=== PATIENT | female | born 1955 | race Caucasian/White ===

== ENCOUNTER 2023-07-23 08:31 | Day surgery (SDC) | payer MEDICARE, SELFPAY ==
[2023-07-17 09:58] VITALS: BMI 22.7
--- NOTE | 2023-07-22 08:32 | HO.ANESPROP2 ---
Documented by User: Marlena Tripp NP 07/22/23 08:33 HPI - Anesthesia Eval Consult details Narrative: 68yo F for Colonoscopy MS Suboxon daily PMFSH Past Medical History Medical History Psoriasis Depression GERD (gastroesophageal reflux disease) Osteopenia Migraines Multiple sclerosis HTN (hypertension) Chronic constipation Opiate dependence Surgical History Surgical History Hx of hysterectomy Hx of cholecystectomy History of total hip replacement Hx of total knee replacement H/O colonoscopy Social History Patient Tobacco Use Status: Never used Tobacco Use of substances other than those prescribed or required for medical reasons: No Have you been hit, kicked, punched, or otherwise hurt by someone within the past year? If so, by whom?: No Are you DNR?: No Advance Directives Information Provided: Yes (as above noted) Advance Directives on File: No Recently lost weight without trying: No Eating poorly because of decreased appetite: No Nutrition Risks: No Nutritional Risk Poor oral hygiene: No (upper partial & lower full denture) Meds Allergies Allergy/AdvReac Type Severity Reaction Status Date / Time No Known Allergies Allergy Verified 07/17/23 09:43 Home Medications Medication Instructions Recorded Confirmed Last Taken Type buprenorphine 8 mg-naloxone 2 mg 1 film buccal BID 07/17/23 07/17/23 Unknown History sublingual film (Suboxone) bupropion HCl 100 mg tablet 100 mg PO BID 07/17/23 07/17/23 Unknown History dextroamphetamine-amphetamine 30 15 mg PO TID 07/17/23 07/17/23 Unknown History mg tablet (Adderall) irbesartan 75 mg tablet 75 mg PO BEDTIME 07/17/23 07/17/23 Unknown History Exam Height,Weight and Vital Signs: Height 5 ft 7 in Weight 65.771 kg Assessment and Plan Assessment Anesthesia Assessment: Chart Reviewed Documented by User: Augustina Saini MD 07/23/23 09:20 PMFSH Past Medical History Medical History Psoriasis Depression GERD (gastroesophageal reflux disease) Osteopenia Migraines Multiple sclerosis HTN (hypertension) Chronic constipation Opiate dependence Surgical History Surgical History Hx of hysterectomy Hx of cholecystectomy History of total hip replacement Hx of total knee replacement H/O colonoscopy History of Problems with Anesthesia: No Social History Patient Tobacco Use Status: Never used Tobacco Use of substances other than those prescribed or required for medical reasons: No Have you been hit, kicked, punched, or otherwise hurt by someone within the past year? If so, by whom?: No Are you DNR?: No Advance Directives Information Provided: Yes (as above noted) Advance Directives on File: No Recently lost weight without trying: No Eating poorly because of decreased appetite: No Nutrition Risks: No Nutritional Risk Poor oral hygiene: No (upper partial & lower full denture) Meds Allergies Allergy/AdvReac Type Severity Reaction Status Date / Time No Known Allergies Allergy Verified 07/17/23 09:43 Home Medications Medication Instructions Recorded Confirmed Last Taken Type buprenorphine 8 mg-naloxone 2 mg 1 film buccal BID 07/17/23 07/17/23 Unknown History sublingual film (Suboxone) bupropion HCl 100 mg tablet 100 mg PO BID 07/17/23 07/17/23 Unknown History dextroamphetamine-amphetamine 30 15 mg PO TID 07/17/23 07/17/23 Unknown History mg tablet (Adderall) irbesartan 75 mg tablet 75 mg PO BEDTIME 07/17/23 07/17/23 Unknown History Assessment and Plan Assessment Anesthesia Assessment: Anesthesia Plan Discussed Final Anesthetic Review History of Problems with Anesthesia: No NPO: Yes ASA Class: II Final Preanesthetic Review: Meds/Allgs Chart Reviewed, Consent Obtained/Reviewed and Anes Risks/Benef Reviewed Procedure Risk: Low Anesthetic Plan Anesthetic Plan: MAC: Disposition: Standard PACU
[2023-07-23 08:45] VITALS: BMI 23.1
--- NOTE | 2023-07-23 09:08 | P.HPSUR_ITS ---
Pre-Procedural Eval Section A Date of Service: 07/23/23 Section B Chief Complaint: Encounter for screening for malignant neoplasm of Details of Present Illness: see H&P no changes Relevant Family History (Specify if Yes): No Relevant Social History: None Medical History: No relevant PMH History of Previous Operations: No relevant previous surgery Allergies: Allergies Allergy/AdvReac Type Severity Reaction Status Date / Time No Known Allergies Allergy Verified 07/17/23 09:43 Review of Systems Sugical H&P ROS: Negative: Constitution, Cardiovascular, Respiratory, Neurological, Psychiatric, Hem-Onc, Allergic/Immunologic, Gastrointestinal, Genitourinary, Musculoskeletal, Integumentary, Endocrine and Eyes/Ears/Nose/Throat Exam Surgical H&P Exam: Normal: HEENT, Normal: Heart, Normal: Lungs, Normal: Extremi ties, Normal: Abdomen, Normal: Skin and Normal: Neurological Plan I have reviewed the history and physical and performed a pertinent physical examination on my patient. No changes have occurred unless specified. Time Spent With Patient Time: Total time managing care of this patient today ____ minutes.
[2023-07-23 09:09] VITALS: BP 131/74; PULSE 83; RESP 16; TEMP 37.3; O2SAT 98
[2023-07-23] MEDS: Lactated Ringers 1,000 ML 100 ML IVCONT (09:11)
--- NOTE | 2023-07-23 09:48 | P.BOP_ITS ---
Brief Operative Note Date of Service: 07/23/23 Pre-op diagnosis: screening Post-op diagnosis: same Procedure: colonoscopy Surgeon: Keyshawn Lacy MD Anesthesia: MAC Was an Osteopathic Medicine Teacher used for this Procedure?: No Estimated blood loss (mL): 0 Pathology: none sent Condition: stable Disposition: PACU
[2023-07-23 09:50] VITALS: BP 100/53; PULSE 75; RESP 16; TEMP 37; O2SAT 97
[2023-07-23 10:05] VITALS: BP 105/59; PULSE 72; RESP 16; O2SAT 99
--- NOTE | 2023-07-23 10:06 | OP_ITS ---
DATE OF SERVICE: 07/23/2023 SURGEON: Keyshawn Lacy MD INDICATIONS: Colon cancer screening and family history of colon polyps. PREOPERATIVE DIAGNOSIS: POSTOPERATIVE DIAGNOSIS: PROCEDURE PERFORMED: Colonoscopy to the terminal ileum. ESTIMATED BLOOD LOSS: COMPLICATIONS: ANESTHESIA: Monitored anesthesia care. ASSISTANTS: SPECIMENS: DESCRIPTION OF PROCEDURE: A history and physical were performed. The risks and benefits of the procedure were explained to the patient and informed consent was obtained. The patient was placed in the left lateral decubitus position. A digital rectal exam was performed and was found to be normal. The Olympus pediatric video colonoscope was introduced into the rectum and advanced to the cecum. The cecum was identified by transillumination, palpation, and identification of ileocecal valve. Examination was performed and the scope was removed. She tolerated the procedure well and was taken to recovery in stable condition. FINDINGS: The terminal ileum was examined and appeared normal. The visualized colonic mucosa was within normal limits without evidence of masses or ulcers. There was a large amount of liquid stool, which limited the examination for detection of small polyps. This was washed and suctioned as best possible. The areas that were not well seen were the cecum and the sigmoid. There were few diverticula seen. Retroflexed examination was normal. IMPRESSION: Normal colonoscopy. RECOMMENDATIONS: 1. Follow up as needed. 2. Repeat colonoscopy is recommended in 5 years because of family history. MD YAYO Garcia/KRUNAL / [id number]
[2023-07-23 10:20] VITALS: BP 104/58; PULSE 71; RESP 16; TEMP 36.8; O2SAT 99
== END 2023-07-23 11:12 | disposition home or self-care (01) ==
PROVIDERS: PCP Family Medicine; Visit Provider Internal Medicine Gastroenterology
PROC: 0DJD8ZZ Inspection of Lower Intestinal Tract, Via Natural or Artificial Opening Endoscopic (ICD-10-PCS; CPT 45378; principal; 2023-07-23 09:30)
DX: Z12.11 Encounter for screening for malignant neoplasm of colon (principal); Z83.719 Family history of colon polyps, unspecified; K57.30 Diverticulosis of large intestine without perforation or abscess without bleeding; K59.09 Other constipation; K21.9 Gastro-esophageal reflux disease without esophagitis; I10 Essential (primary) hypertension; G43.909 Migraine, unspecified, not intractable, without status migrainosus; G35 Multiple sclerosis; M85.80 Other specified disorders of bone density and structure, unspecified site; F11.20 Opioid dependence, uncomplicated; F32.A Depression, unspecified; L40.9 Psoriasis, unspecified; Z79.899 Other long term (current) drug therapy; Z98.890 Other specified postprocedural states
CPT/HCPCS: G0105; J2704